=== PATIENT | male | born 1970 | race Caucasian/White ===

== ENCOUNTER 2022-04-27 06:53 | Inpatient (IN) ==
[2022-04-27] MEDS ORDERED: *HR* Remifentanil 1 MG VIAL IVP ONE (07:26)
[2022-04-27] MEDS ORDERED: Acetaminophen IV 1,000 MG/100 ML BAG IVPB ONE (07:35)
[2022-04-27] MEDS ORDERED: CeFAZolin Syr 2,000MG/20 ML 2,000 MG/20 ML SYRINGE IVPB ONE (07:36)
[2022-04-27] MEDS ORDERED: Ringers Solution, Lactated 1,000 ML IVC SCH (07:45)
[2022-04-27] MEDS ORDERED: *HR* Rocuronium Bromide 50 MG/5 ML VIAL ONE (09:30)
[2022-04-27] MEDS ORDERED: *HR* HYDROMORPHONE 2 MG/ML VIAL ONE (10:08)
[2022-04-27] MEDS ORDERED: Sugammadex Sodium 200 MG/2 ML VIAL IV ONE (10:37)
[2022-04-27] MEDS ORDERED: Ketorolac 30 MG/ML VIAL ONE (10:48)
[2022-04-27] MEDS: *HR* FentaNYL (PF) 100 MCG/2 ML VIAL IVP PRN ×4 (10:49→11:04)
[2022-04-27] MEDS: *HR* HYDROmorphone PF 0.5 MG/0.5 ML SYRINGE IVP SCH ×2 (11:58→12:18)
[2022-04-27] MEDS ORDERED: Naloxone 0.4 MG/ML INJ IVP PRN (14:37)
[2022-04-27] MEDS: Ketorolac 30 MG/ML VIAL IVP SCH ×3 (14:46→23:51)
[2022-04-27] MEDS: Gabapentin 300 MG CAPSULE PO SCH ×2 (14:46→20:46)
[2022-04-27] MEDS: 0.9 % Sodium Chloride 1,000 ML IVC SCH (15:48)
[2022-04-27] MEDS: *HR* Heparin 5,000 UNIT/ML VIAL SQ SCH ×2 (15:48→23:51)
[2022-04-27] MEDS: Ipratropium/Albuterol Neb 3 ML IH SCH ×4 (15:53→23:14)
[2022-04-27] MEDS: *HR* HYDROcodone/Acet 5/325 mg TABLET PO PRN (15:55)
[2022-04-27] MEDS: Sennosides/Docusate Sodium TABLET PO SCH (20:47)
[2022-04-27] MEDS: Famotidine 20 MG TABLET PO SCH (20:48)
[2022-04-28 02:04] LABS: Hematocrit 38.1 % (37.5-50.1); Mean Corpuscular HGB Conc 31.8 g/dL (31.6-35.5); Mean Corpuscular Hemoglobin 28.1 pg (28.0-33.3); Mean Corpuscular Volume 88.4 fL (83.0-100.0); Mean Platelet Volume 10.5 fL (9.4-12.4); Platelet Count 235 K/mcL (140-400); Red Blood Count 4.31 M/mcL (4.19-5.50); Red Cell Distribution Width 14.4 % (11.5-14.5)
[2022-04-28 02:16] LABS: Hemoglobin 12.1 g/dL (12.9-16.9); White Blood Count 13.8 K/mcL (4.3-11.1)
[2022-04-28 02:28] LABS: BUN/Creatinine Ratio 22 (6-26); Blood Urea Nitrogen 23 mg/dL (6-20); Calcium 8.4 mg/dL (8.6-10.3); Carbon Dioxide 24 mEq/L (23-29); Chloride 107 mEq/L (98-107); Glucose 176 mg/dL (70-105); Magnesium 2.1 mg/dL (1.6-2.6); Osmolality,Calculated 290 (280-300); Potassium 4.1 mEq/L (3.5-5.1); Sodium 136 mEq/L (136-145); eGFR For African Americans > 60 (> 60); eGFR For Non-African Americans > 60 (> 60)
[2022-04-28] MEDS: Ipratropium/Albuterol Neb 3 ML IH SCH ×5 (04:04→20:23)
[2022-04-28] MEDS: 0.9 % Sodium Chloride 1,000 ML IVC SCH (05:34)
[2022-04-28] MEDS: *HR* Heparin 5,000 UNIT/ML VIAL SQ SCH ×3 (05:35→20:49)
[2022-04-28] MEDS: Ketorolac 30 MG/ML VIAL IVP SCH ×3 (05:36→16:42)
[2022-04-28] MEDS: Sennosides/Docusate Sodium TABLET PO SCH ×2 (07:45→20:49)
[2022-04-28] MEDS: Famotidine 20 MG TABLET PO SCH ×2 (07:45→20:50)
[2022-04-28] MEDS: Gabapentin 300 MG CAPSULE PO SCH ×3 (07:45→20:49)
[2022-04-28] MEDS: Loratadine 10 MG TABLET PO SCH (07:46)
[2022-04-28] MEDS: lisinopriL 20 MG TABLET PO SCH (07:46)
[2022-04-28] MEDS: *HR* HYDROcodone/Acet 5/325 mg TABLET PO PRN ×4 (08:44→22:48)
[2022-04-28] MEDS: Metoprolol XL (24 HR) Succ 25 MG TAB.ER.24H PO SCH (11:44)
[2022-04-28] MEDS: lisinopriL 10 MG TABLET PO SCH (16:42)
[2022-04-29] MEDS: Ketorolac 30 MG/ML VIAL IVP SCH ×3 (00:10→11:51)
[2022-04-29] MEDS: Ipratropium/Albuterol Neb 3 ML IH SCH ×6 (00:15→20:18)
[2022-04-29 01:42] LABS: BUN/Creatinine Ratio 23 (6-26); Blood Urea Nitrogen 25 mg/dL (6-20); Calcium 8.6 mg/dL (8.6-10.3); Carbon Dioxide 25 mEq/L (23-29); Chloride 108 mEq/L (98-107); Glucose 148 mg/dL (70-105); Osmolality,Calculated 295 (280-300); Potassium 4.2 mEq/L (3.5-5.1); Sodium 139 mEq/L (136-145); eGFR For African Americans > 60 (> 60); eGFR For Non-African Americans > 60 (> 60)
[2022-04-29] MEDS: *HR* HYDROcodone/Acet 5/325 mg TABLET PO PRN ×4 (03:14→19:57)
[2022-04-29] MEDS: Famotidine 20 MG TABLET PO SCH ×2 (04:56→19:55)
[2022-04-29] MEDS: *HR* Heparin 5,000 UNIT/ML VIAL SQ SCH ×3 (04:57→21:18)
[2022-04-29] MEDS: Gabapentin 300 MG CAPSULE PO SCH ×3 (07:22→19:55)
[2022-04-29] MEDS: lisinopriL 20 MG TABLET PO SCH (07:22)
[2022-04-29] MEDS: Sennosides/Docusate Sodium TABLET PO SCH ×2 (07:22→19:57)
[2022-04-29] MEDS: Metoprolol XL (24 HR) Succ 25 MG TAB.ER.24H PO SCH (07:23)
[2022-04-29] MEDS: Loratadine 10 MG TABLET PO SCH (10:05)
[2022-04-29] MEDS ORDERED: Furosemide 40 MG/4 ML VIAL IVP SCH (16:38)
[2022-04-29] MEDS: lisinopriL 10 MG TABLET PO SCH (17:22)
[2022-04-29] MEDS ORDERED: *HR* HYDROmorphone 2 MG/ML SYRINGE IVP PRN (20:40)
[2022-04-30] MEDS: Ipratropium/Albuterol Neb 3 ML IH SCH ×7 (00:14→22:57)
[2022-04-30] MEDS: *HR* HYDROcodone/Acet 5/325 mg TABLET PO PRN ×3 (04:17→22:54)
[2022-04-30] MEDS: *HR* Heparin 5,000 UNIT/ML VIAL SQ SCH ×3 (06:41→20:31)
[2022-04-30] MEDS: Sennosides/Docusate Sodium TABLET PO SCH ×2 (08:49→20:31)
[2022-04-30] MEDS: Gabapentin 300 MG CAPSULE PO SCH ×3 (08:49→20:30)
[2022-04-30] MEDS: lisinopriL 20 MG TABLET PO SCH (08:49)
[2022-04-30] MEDS: Loratadine 10 MG TABLET PO SCH (08:49)
[2022-04-30] MEDS: Metoprolol XL (24 HR) Succ 25 MG TAB.ER.24H PO SCH (08:49)
[2022-04-30] MEDS: Famotidine 20 MG TABLET PO SCH ×2 (08:49→20:30)
[2022-04-30] MEDS ORDERED: PrednisoLONE Oral Soln 15 MG/5 ML UDC PO ONE (11:38)
[2022-04-30] MEDS ORDERED: Hydrocortisone Sodium Succ 100 MG/2 ML VIAL IVP ONE (11:38)
[2022-04-30] MEDS ORDERED: Nystatin SUSP 5 ML UD.LIQ PO SCH (13:00)
[2022-04-30] MEDS: Furosemide 40 MG in 0.9 % Sodium Chloride 50 ML IV SCH ×2 (13:33→20:37)
[2022-04-30] MEDS: lisinopriL 10 MG TABLET PO SCH (16:59)
[2022-05-01] MEDS: Ipratropium/Albuterol Neb 3 ML IH SCH ×3 (03:43→11:24)
[2022-05-01] MEDS: *HR* Heparin 5,000 UNIT/ML VIAL SQ SCH (05:16)
[2022-05-01] MEDS: Metoprolol XL (24 HR) Succ 25 MG TAB.ER.24H PO SCH (08:20)
[2022-05-01] MEDS: Gabapentin 300 MG CAPSULE PO SCH (08:20)
[2022-05-01] MEDS: lisinopriL 20 MG TABLET PO SCH (08:20)
[2022-05-01] MEDS: Loratadine 10 MG TABLET PO SCH (08:21)
[2022-05-01] MEDS: Famotidine 20 MG TABLET PO SCH (08:21)
[2022-05-01] MEDS: Sennosides/Docusate Sodium TABLET PO SCH (08:22)
[2022-05-01 11:55] VITALS: TEMP 98.8
[2022-05-01] MEDS: Furosemide 40 MG in 0.9 % Sodium Chloride 50 ML IV SCH (12:04)
[2022-05-01 12:26] VITALS: BP 139/92; O2SAT 95
[2022-05-01 12:30] VITALS: PULSE 85
[2022-05-01] MEDS: *HR* HYDROcodone/Acet 5/325 mg TABLET PO PRN (13:41)
== END 2022-05-01 14:41 | disposition home or self-care (01) | DRG 163 ==
LOC: SAMDAY 06:53 → 2NNU 14:34
PROVIDERS: ADMIT Thoracic Surgery (Cardiothoracic Vascular Surgery); ATTEND Thoracic Surgery (Cardiothoracic Vascular Surgery)